=== PATIENT | male | born 1945 | race African-American/Black ===

== ENCOUNTER 2019-10-31 20:46 | Emergency (ER) | payer MEDICARE, OTHER ==
[~2019-10-31] VITALS: Ht 165.1 cm; Wt 99.8 kg
[2019-10-31] MEDS ORDERED: HYDROcodone-ACET 5/325MG TAB PO ONE (22:00)
[2019-10-31 22:50] LABS: Basophils # (auto) 0 10 ^3/uL (0-0.2); Basophils % (auto) 0.9 % (0.0-2.0); Eosinophils # (auto) 0.1 10 ^3/uL (0-0.8); Hematocrit 37.9 % (41.0-53.0); Hemoglobin 12.1 g/dL (13.5-17.5); Lymphocytes # (auto) 1.1 10 ^3/uL (0.4-5.4); Lymphocytes % (auto) 31.3 % (10.0-50.0); Mean Corpuscular Hemoglobin 29.2 pg (28.0-32.0); Mean Corpuscular Volume 91.2 fL (80.0-100.0); Monocytes # (auto) 0.4 10 ^3/uL (0-1.3); Monocytes % (auto) 10.6 % (0.0-12.0); Neutrophils # (auto) 1.8 10 ^3/uL (1.6-8.6); Neutrophils % (auto) 53.2 % (37.0-80.0); Nucleated Red Blood Cells % 0.1 %; Platelet Count (auto) 207 10^3/uL (140-450); Red Blood Cells 4.16 10^6/uL (4.5-5.90); Red Cell Distribution Width 16.6 % (11.8-14.3); White Blood Cell 3.4 10^3/uL (4.4-10.8)
[2019-10-31 23:01] LABS: Alanine Aminotransferase 14 U/L (16-61); Anion Gap 19 (5-15); Aspartate Aminotransferase 13 U/L (15-37); BUN/Creatinine Ratio 12.3; Blood Urea Nitrogen 8 mg/dL (7-18); Carbon Dioxide 13 mmol/L (21-32); Chloride 109 mmol/L (98-107); GFR African American 155 mL/min; GFR Non-African American 128 mL/min; Glucose 77 mg/dL (74-106); Potassium 3.2 mmol/L (3.5-5.1); Sodium 141 mmol/L (136-145)
[2019-10-31 23:04] LABS: Calcium 7.7 mg/dL (8.5-10.1)
[2019-10-31 23:06] LABS: Alkaline Phosphatase 67 U/L (45-117); Bilirubin, Total 0.3 mg/dL (0.2-1.0); Total Protein 6.5 g/dL (6.4-8.2)
[2019-10-31 23:07] LABS: INR 1.02 (0.9-1.15); Partial Thromboplastin Time 30.7 sec (23.0-31.2)
[2019-10-31 23:53] LABS: Albumin 3.1 g/dL (3.4-5.0)
[2019-10-31 23:54] LABS: Magnesium 1.9 mg/dL (1.6-2.6)
[2019-11-01 07:30] VITALS: BP 124/82
== END 2019-11-01 10:17 | disposition home or self-care (01) ==
LOC: ER 20:48
DX: M25.562 Pain in left knee (principal); M25.561 Pain in right knee; M25.552 Pain in left hip; M25.551 Pain in right hip; M19.90 Unspecified osteoarthritis, unspecified site; M10.9 Gout, unspecified
CPT/HCPCS: 36415; 80053; 83735; 83880; 84443; 84484; 85025; 85610; 85730; 93005

== ENCOUNTER 2019-11-09 13:17 | Emergency (ER) | payer MEDICARE, OTHER ==
[~2019-11-09] VITALS: Ht 165.1 cm; Wt 99.8 kg
[2019-11-09 17:22] LABS: Urine Bacteria FEW /hpf (None Seen); Urine Blood Negative /uL (Negative); Urine Mucus FEW (None Seen); Urine Specific Gravity 1.018 (1.001-1.035); Urine WBC 2 /hpf (0 - 5)
[2019-11-09 18:03] VITALS: BP 131/83
== END 2019-11-09 19:10 | disposition home or self-care (01) ==
LOC: EDBD 13:17 → EDSEX 13:17 → ER 13:17
DX: R52 Pain, unspecified (principal); F41.9 Anxiety disorder, unspecified; F32.9 Major depressive disorder, single episode, unspecified
CPT/HCPCS: 81001